=== PATIENT | female | born 1955 | race Caucasian/White ===

== ENCOUNTER 2017-11-01 18:31 | Emergency (ER) | payer SELFPAY ==
[~2017-11-01] VITALS: Ht 165.1 cm; Wt 68.5 kg
[2017-11-01] MEDS ORDERED: D-ME118S33 PO (19:24)
--- NOTE | 2017-11-01 19:24 | ED Cough/URI ---
General Chief Complaint: Cough/Cold/Flu Symptoms Stated Complaint: COUGH/BODY ACHES Source: patient Exam Limitations: no limitations History of Present Illness Date Seen by Provider: Nov 01, 2017 Time Seen by Provider: 19:22 Initial Comments 1 to ER with a cough nonproductive, body aches 5 days. Also has pressure in both ears Timing/Duration: just prior to arrival Severity/Quality: dry cough Associated Symptoms: cough Constitutional: see HPI EENTM: see HPI, ear pain Respiratory: see HPI, cough Genitourinary: no symptoms reported Musculoskeletal: no symptoms reported Skin: no symptoms reported Past [id number] Hx Patient Social History Recent Foreign Travel: No Contact w/Someone Who Travel: No Physical Exam Vital Signs Capillary Refill : General Appearance: WD/WN, no apparent distress Eyes: Bilateral Eye Normal Inspection, Bilateral Eye PERRL, Bilateral Eye EOMI HEENT: PERRL/EOMI, normal ENT inspection, other (TM bulging without erythema bilaterally) Neck: non-tender, full range of motion Respiratory: lungs clear, normal breath sounds, no respiratory distress, no accessory muscle use Cardiovascular: regular rate, rhythm, no murmur Gastrointestinal: normal bowel sounds, non tender, soft Neurologic/Psychiatric: alert, normal mood/affect, oriented x 3 Skin: normal color, warm/dry Progress/Results/Core Measures Suspected Sepsis SIRS Temperature: Pulse: Respiratory Rate: Blood Pressure / Mean: Results/Orders My Orders Orders - JOEL CORTES APRN Influenza A And B Antigens (11/01/17 18:49) Chest Pa/Lat (2 View) (11/01/17 19:21) Vital Signs/I&O Capillary Refill : Departure Impression Impression: Primary Impression: Serous otitis media Additional Impression: Viral syndrome Disposition: 01 HOME, SELF-CARE Condition: Stable Departure-Patient Inst. Decision time for Depature: 19:23 Referrals: NO,LOCAL PHYSICIAN (PCP/Family) Primary Care Physician Patient Instructions: Acute Bronchitis, Adult (DC) Add. Discharge Instructions: 1. Cough medicine with decongestant as directed 2. Return to ER for any concerns 3. All discharge instructions reviewed with patient and/or family. Voiced understanding. Scripts D-Methorphan Hb/P-Epd HCl/Bpm (Bromfed Dm Cough Syrup) 118 Ml Syrup 5 ML PO Q4H Y for COUGH, #120 ML Prov: JOEL CORTES APRN 11/01/17 JOEL CORTES APRN Nov 01, 2017 19:24
--- NOTE | 2017-11-01 19:40 | Diagnostic Imaging Report ---
Indication: Cough, congestion and fever EXAMINATION: PA and lateral views of the chest. FINDINGS: The heart size and vascularity are normal. Lungs are clear. There is no effusion. There is no acute bony abnormality. IMPRESSION: No acute abnormality is seen. Dictated by: Dictated on workstation # [id number]
[2017-11-01 20:20] VITALS: BP 0/0
== END 2017-11-01 20:20 | disposition home or self-care (01) ==
LOC: ER 18:35
DX: B34.9 Viral infection, unspecified (principal); H65.93 Unspecified nonsuppurative otitis media, bilateral
CPT/HCPCS: 71046; 99282